=== PATIENT | female | born 1935 | race Caucasian/White ===

== ENCOUNTER 2022-03-12 22:27 | Inpatient (IN) | payer MEDICARE, BC ==
[2022-03-12 23:05] LABS: #Eosinphils 0.1 thou/uL (0.0-0.7); #Lymphocytes 0.7 thou/uL (1.20-3.40); #Monocytes 0.6 thou/uL (0.11-0.59); #Neutrophils 9.9 thou/uL (1.40-6.50); %Eosinophils 0.5 % (0.0-10.0); %Lymphocytes 6.2 % (21.0-51.0); %Neutrophils 88.2 % (42.0-75.0); Hemoglobin 12.6 g/dL (12.0-16.0); Mean Corpuscular HGB CONC 33.3 g/dL (32.0-36.0); Mean Corpuscular Hemoglobin 32.8 pg (27.0-31.0); Mean Corpuscular Volume 98.4 fl (78.0-98.0); Mean Platelet Volume 8.2 fL (7.4-10.4); Platelet Count 122 10x3/uL (130-400); RBC Distribution Width 13.1 % (11.5-14.5); Red Blood Cell (RBC) Count 3.85 mill/uL (4.20-5.40); White Blood Cell (WBC) Count 11.2 10x3/uL (4.8-10.8)
[2022-03-12 23:25] LABS: ALT (SGPT) 10 U/L (8-55); AST (SGOT) 15 U/L (5-34); Albumin 4.4 g/dL (3.4-4.8); Alkaline Phosphatase 73 U/L (40-110); Anion Gap 15 mmol/L (10-20); BUN (Urea Nitrogen) 39 mg/dL (9.8-20.1); Calc. Creatinine Clearance 0 mL/min (70-130); Calcium 9.4 mg/dL (7.8-10.44); Carbon Dioxide 24 mmol/L (23-31); Chloride 103 mmol/L (98-107); Estimated GFR 20; Globulin 2.8 g/dL (2.4-3.5); Glucose 116 mg/dL (83-110); Potassium 4.8 mmol/L (3.5-5.1); Protein, Total 7.2 g/dL (5.8-8.1); Sodium 137 mmol/L (136-145)
[2022-03-12] MEDS ORDERED: Ondansetron PF 4 MG/2 ML Vial ONE (23:39)
[2022-03-12] MEDS ORDERED: Morphine 4 MG/ML VIAL ONE (23:39)
[2022-03-12 23:43] LABS: Lipase 1451 U/L (8-78)
[2022-03-13 01:24] LABS: SARS-CoV-2 NAA Rapid Test Not Detected (NotDetected)
[2022-03-13] MEDS ORDERED: Ondansetron PF 4 MG/2 ML Vial IVP PRN (01:57)
[2022-03-13] MEDS ORDERED: Ondansetron ODT 4 MG TAB PO PRN (01:57)
[2022-03-13] MEDS ORDERED: Acetaminophen 650 MG Suppository PR PRN (01:57)
[2022-03-13 02:06] VITALS: BMI 19.4
[2022-03-13] MEDS: Morphine 4 MG/ML VIAL SLOW IVP PRN ×3 (02:06→20:46)
[2022-03-13] MEDS: Sodium Chloride 0.9% 1,000 ML IV SCH ×2 (02:07→06:19)
[2022-03-13 09:50] LABS: #Eosinphils 0.1 thou/uL (0.0-0.7); #Lymphocytes 0.9 thou/uL (1.20-3.40); #Neutrophils 9.8 thou/uL (1.40-6.50); %Basophils 0.1 % (0.0-1.0); %Eosinophils 0.8 % (0.0-10.0); %Lymphocytes 7.8 % (21.0-51.0); %Monocytes 8.1 % (0.0-10.0); %Neutrophils 83.1 % (42.0-75.0); Anion Gap 16 mmol/L (10-20); BUN (Urea Nitrogen) 41 mg/dL (9.8-20.1); Calc. Creatinine Clearance 14 mL/min (70-130); Calcium 8.6 mg/dL (7.8-10.44); Carbon Dioxide 17 mmol/L (23-31); Chloride 107 mmol/L (98-107); Estimated GFR 18; Glucose 75 mg/dL (83-110); Hemoglobin 11.5 g/dL (12.0-16.0); Mean Corpuscular HGB CONC 32.1 g/dL (32.0-36.0); Mean Corpuscular Hemoglobin 32.7 pg (27.0-31.0); Mean Platelet Volume 8.5 fL (7.4-10.4); Platelet Count 110 10x3/uL (130-400); Potassium 4.7 mmol/L (3.5-5.1); RBC Distribution Width 13.2 % (11.5-14.5); Red Blood Cell (RBC) Count 3.51 mill/uL (4.20-5.40); Sodium 135 mmol/L (136-145); White Blood Cell (WBC) Count 11.8 10x3/uL (4.8-10.8)
[2022-03-13] MEDS: Lactated Ringer's 1,000 ML IV SCH ×2 (14:00→20:46)
[2022-03-14] MEDS: Lactated Ringer's 1,000 ML IV SCH ×2 (02:17→08:38)
[2022-03-14] MEDS ORDERED: Iopamidol 30 ML ONE (09:39)
[2022-03-14] MEDS ORDERED: Bupivacaine HCl 0.5%/Epinephrine 1:200,000/PF 30 ml Vial ONE (09:39)
[2022-03-14] MEDS ORDERED: Sodium Chloride 0.9% 100 ML ONE (09:49)
[2022-03-14] MEDS ORDERED: fentaNYL PF 100 MCG/2 ML SYRINGE ONE (09:49)
[2022-03-14] MEDS ORDERED: CEFAZOLIN 2 GM VIAL ONE (09:49)
[2022-03-14] MEDS ORDERED: Famotidine/PF 20 mg/2ml Vial ONE (09:49)
[2022-03-14] MEDS ORDERED: Levofloxacin 500 mg/D5W 100 ml Premix Bag ONE (10:04)
[2022-03-14] MEDS ORDERED: NEOSTIGMINE 3 MG/3 ML SYR 3 MG/3 ML SYRINGE ONE (10:08)
[2022-03-14] MEDS ORDERED: Ondansetron PF 4 MG/2 ML Vial ONE (10:08)
[2022-03-14] MEDS ORDERED: Glycopyrrolate 0.2 MG/ML 5 ML SYRINGE ONE (10:08)
[2022-03-14] MEDS ORDERED: Lidocaine 1% PF 5 ML VIAL ONE (10:08)
[2022-03-14] MEDS ORDERED: Rocuronium Bromide 10 MG/ML (10ML VIAL) ONE (10:08)
[2022-03-14] MEDS ORDERED: PROPOFOL 200 MG/20 ML VIAL ONE (10:08)
[2022-03-14] MEDS ORDERED: PHENYLEPHRINE-NS 100 MCG/ML 10 ML SYRINGE ONE (10:08)
[2022-03-14] MEDS ORDERED: Promethazine HCl 25 MG/ML VIAL IM PRN (12:00)
[2022-03-14] MEDS ORDERED: Albumin 5% 500 ML ONE (12:09)
[2022-03-14] MEDS ORDERED: Fentanyl 100 MCG/2 ML VIAL ONE (12:22)
[2022-03-14 12:54] LABS: #Eosinphils 0.1 thou/uL (0.0-0.7); #Lymphocytes 0.7 thou/uL (1.20-3.40); #Neutrophils 11.9 thou/uL (1.40-6.50); %Basophils 0.1 % (0.0-1.0); %Eosinophils 0.9 % (0.0-10.0); %Lymphocytes 5.4 % (21.0-51.0); %Monocytes 6.9 % (0.0-10.0); %Neutrophils 86.7 % (42.0-75.0); Hemoglobin 8.8 g/dL (12.0-16.0); Mean Corpuscular Hemoglobin 32.6 pg (27.0-31.0); Mean Platelet Volume 8.6 fL (7.4-10.4); Platelet Count 97 10x3/uL (130-400); RBC Distribution Width 13.5 % (11.5-14.5); White Blood Cell (WBC) Count 13.7 10x3/uL (4.8-10.8)
[2022-03-14] MEDS ORDERED: Acetaminophen 500 MG TAB PO PRN (13:19)
[2022-03-14] MEDS ORDERED: Lactated Ringer's 1,000 ML IV SCH (13:25)
[2022-03-14 13:32] LABS: ALT (SGPT) 16 U/L (8-55); AST (SGOT) 40 U/L (5-34); Albumin 2.8 g/dL (3.4-4.8); Alkaline Phosphatase 44 U/L (40-110); Anion Gap 12 mmol/L (10-20); BUN (Urea Nitrogen) 46 mg/dL (9.8-20.1); Bilirubin, Total 1.1 mg/dL (0.2-1.2); Calc. Creatinine Clearance 10 mL/min (70-130); Calcium 7.8 mg/dL (7.8-10.44); Carbon Dioxide 19 mmol/L (23-31); Chloride 109 mmol/L (98-107); Estimated GFR 12; Globulin 1.6 g/dL (2.4-3.5); Glucose 85 mg/dL (83-110); Lipase 56 U/L (8-78); Potassium 5.3 mmol/L (3.5-5.1); Protein, Total 4.4 g/dL (5.8-8.1); Sodium 135 mmol/L (136-145)
[2022-03-14] MEDS ORDERED: Acetaminophen 500 MG TAB PO SCH (13:45)
[2022-03-14] MEDS ORDERED: Sodium Chloride 0.9% 1,000 ML IV SCH (14:45)
[2022-03-14 18:11] LABS: #Eosinphils 0.1 thou/uL (0.0-0.7); #Lymphocytes 0.6 thou/uL (1.20-3.40); #Monocytes 0.7 thou/uL (0.11-0.59); #Neutrophils 11.4 thou/uL (1.40-6.50); %Basophils 0.2 % (0.0-1.0); %Eosinophils 0.7 % (0.0-10.0); %Lymphocytes 4.5 % (21.0-51.0); %Monocytes 5.5 % (0.0-10.0); Hemoglobin 10.1 g/dL (12.0-16.0); Mean Corpuscular HGB CONC 31.9 g/dL (32.0-36.0); Mean Corpuscular Hemoglobin 32.7 pg (27.0-31.0); Mean Platelet Volume 8.7 fL (7.4-10.4); Platelet Count 104 10x3/uL (130-400); RBC Distribution Width 13.7 % (11.5-14.5); Red Blood Cell (RBC) Count 3.08 mill/uL (4.20-5.40); White Blood Cell (WBC) Count 12.9 10x3/uL (4.8-10.8)
[2022-03-14] MEDS: Sodium Chloride 0.9% 1,000 ML IV SCH ×2 (18:19→21:07)
[2022-03-14] MEDS: Morphine 4 MG/ML VIAL SLOW IVP PRN (21:07)
[2022-03-15] MEDS: Sodium Chloride 0.9% 1,000 ML IV SCH (02:35)
[2022-03-15 07:09] LABS: ALT (SGPT) 35 U/L (8-55); AST (SGOT) 64 U/L (5-34); Albumin 2.6 g/dL (3.4-4.8); Alkaline Phosphatase 54 U/L (40-110); Anion Gap 14 mmol/L (10-20); BUN (Urea Nitrogen) 52 mg/dL (9.8-20.1); Bilirubin, Total 1.4 mg/dL (0.2-1.2); Calc. Creatinine Clearance 9 mL/min (70-130); Calcium 7.7 mg/dL (7.8-10.44); Carbon Dioxide 18 mmol/L (23-31); Chloride 111 mmol/L (98-107); Estimated GFR 11; Globulin 2.2 g/dL (2.4-3.5); Glucose 78 mg/dL (83-110); Potassium 5.8 mmol/L (3.5-5.1); Protein, Total 4.8 g/dL (5.8-8.1); Sodium 137 mmol/L (136-145)
[2022-03-15 07:42] LABS: Band 3 % (5-11); Burr Cells SLIGHT = 2-5 cells (100X) (0-1/hpf); Lymphocytes 2 % (21-51); MDiff Complete? YES; Mean Corpuscular HGB CONC 33.6 g/dL (32.0-36.0); Mean Corpuscular Hemoglobin 33.7 pg (27.0-31.0); Mean Platelet Volume 8.9 fL (7.4-10.4); Monocytes 4 % (0-10); Neutrophil 90 % (42-75); Ovalocytes SLIGHT = 2-5 cells (100X) (0-1/hpf); Platelet Count 98 10x3/uL (130-400); Platelet Morphology Comment Appears Decreased; Polychromasia SLIGHT = 2-3 cells (100X) (0-2/hpf); RBC Distribution Width 13.6 % (11.5-14.5); Red Blood Cell (RBC) Count 2.97 mill/uL (4.20-5.40)
[2022-03-15] MEDS ORDERED: LOKELMA 10 GM PACKET PO SCH (08:45)
[2022-03-15] MEDS ORDERED: Sodium Bicarbonate 150 MEQ in Dextrose 5% in Water 1,000 ML IV SCH (09:00)
[2022-03-15] MEDS: traMADol HCl 50 MG TAB PO PRN (09:21)
[2022-03-15] MEDS: HYDROcodone/Acetaminophen 5/325 mg Tablet PO PRN (10:40)
[2022-03-15 17:58] LABS: Anion Gap 15 mmol/L (10-20); BUN (Urea Nitrogen) 55 mg/dL (9.8-20.1); Calc. Creatinine Clearance 9 mL/min (70-130); Calcium 7.8 mg/dL (7.8-10.44); Carbon Dioxide 18 mmol/L (23-31); Chloride 108 mmol/L (98-107); Estimated GFR 11; Glucose 113 mg/dL (83-110); Potassium 5.1 mmol/L (3.5-5.1); Sodium 136 mmol/L (136-145)
[2022-03-15] MEDS: predniSONE 5 MG TAB PO SCH (20:51)
[2022-03-15] MEDS: Acetaminophen 325 MG TAB PO PRN (20:52)
[2022-03-15] MEDS: Levothyroxine Sodium 112 MCG TAB PO SCH (20:52)
[2022-03-16] MEDS: Levothyroxine Sodium 112 MCG TAB PO SCH (05:39)
[2022-03-16 06:42] LABS: #Eosinphils 0.1 thou/uL (0.0-0.7); #Lymphocytes 0.5 thou/uL (1.20-3.40); #Monocytes 0.5 thou/uL (0.11-0.59); #Neutrophils 8.7 thou/uL (1.40-6.50); %Basophils 0.2 % (0.0-1.0); %Eosinophils 0.5 % (0.0-10.0); %Lymphocytes 5.1 % (21.0-51.0); %Monocytes 5.3 % (0.0-10.0); %Neutrophils 88.9 % (42.0-75.0); Hemoglobin 9.7 g/dL (12.0-16.0); Mean Corpuscular HGB CONC 33.1 g/dL (32.0-36.0); Mean Corpuscular Hemoglobin 33.3 pg (27.0-31.0); Mean Platelet Volume 8.2 fL (7.4-10.4); Platelet Count 117 10x3/uL (130-400); RBC Distribution Width 13.5 % (11.5-14.5); Red Blood Cell (RBC) Count 2.91 mill/uL (4.20-5.40); White Blood Cell (WBC) Count 9.7 10x3/uL (4.8-10.8)
[2022-03-16 07:04] LABS: ALT (SGPT) 34 U/L (8-55); AST (SGOT) 37 U/L (5-34); Albumin 2.5 g/dL (3.4-4.8); Alkaline Phosphatase 64 U/L (40-110); Anion Gap 14 mmol/L (10-20); BUN (Urea Nitrogen) 54 mg/dL (9.8-20.1); Bilirubin, Total 1.1 mg/dL (0.2-1.2); Calc. Creatinine Clearance 9 mL/min (70-130); Calcium 7.9 mg/dL (7.8-10.44); Carbon Dioxide 19 mmol/L (23-31); Chloride 105 mmol/L (98-107); Estimated GFR 11; Globulin 2.1 g/dL (2.4-3.5); Glucose 101 mg/dL (83-110); Protein, Total 4.6 g/dL (5.8-8.1); Sodium 133 mmol/L (136-145)
[2022-03-16] MEDS: Escitalopram Oxalate 20 mg Tablet PO SCH (08:27)
[2022-03-16] MEDS: predniSONE 5 MG TAB PO SCH (08:27)
[2022-03-16] MEDS: HYDROcodone/Acetaminophen 5/325 mg Tablet PO PRN ×3 (08:40→23:52)
[2022-03-16] MEDS ORDERED: Levothyroxine Sodium 112 MCG TAB PO SCH (09:00)
[2022-03-16] MEDS: Apixaban 2.5 MG TAB PO SCH (21:02)
[2022-03-17] MEDS: traMADol HCl 50 MG TAB PO PRN ×4 (01:53→23:32)
[2022-03-17] MEDS: Levothyroxine Sodium 112 MCG TAB PO SCH (05:08)
[2022-03-17 07:00] LABS: Platelet Count 140 10x3/uL (130-400)
[2022-03-17 07:21] LABS: Anion Gap 15 mmol/L (10-20); BUN (Urea Nitrogen) 57 mg/dL (9.8-20.1); Calc. Creatinine Clearance 9 mL/min (70-130); Calcium 8.5 mg/dL (7.8-10.44); Carbon Dioxide 20 mmol/L (23-31); Chloride 106 mmol/L (98-107); Estimated GFR 11; Glucose 88 mg/dL (83-110); Potassium 5.2 mmol/L (3.5-5.1); Sodium 136 mmol/L (136-145)
[2022-03-17] MEDS: Apixaban 2.5 MG TAB PO SCH ×2 (08:39→20:11)
[2022-03-17] MEDS: predniSONE 5 MG TAB PO SCH (08:40)
[2022-03-17] MEDS: Escitalopram Oxalate 20 mg Tablet PO SCH (08:41)
[2022-03-17] MEDS: Torsemide 20 MG TAB PO SCH (10:23)
[2022-03-17] MEDS: HYDROcodone/Acetaminophen 5/325 mg Tablet PO PRN (12:59)
[2022-03-18] MEDS ORDERED: cloNIDine 0.1 MG TAB PO SCH (00:30)
[2022-03-18] MEDS: Levothyroxine Sodium 112 MCG TAB PO SCH (05:09)
[2022-03-18] MEDS: HYDROcodone/Acetaminophen 5/325 mg Tablet PO PRN ×2 (05:15→13:26)
[2022-03-18] MEDS: Apixaban 2.5 MG TAB PO SCH ×2 (09:39→21:16)
[2022-03-18] MEDS: Torsemide 20 MG TAB PO SCH (09:39)
[2022-03-18] MEDS: Escitalopram Oxalate 20 mg Tablet PO SCH (09:39)
[2022-03-18] MEDS: predniSONE 5 MG TAB PO SCH (09:39)
[2022-03-18] MEDS: traMADol HCl 50 MG TAB PO PRN (09:45)
[2022-03-18] MEDS: Acetaminophen 325 MG TAB PO PRN (21:16)
[2022-03-19] MEDS: HYDROcodone/Acetaminophen 5/325 mg Tablet PO PRN ×4 (01:30→19:59)
[2022-03-19] MEDS: traMADol HCl 50 MG TAB PO PRN (04:00)
[2022-03-19] MEDS: Levothyroxine Sodium 112 MCG TAB PO SCH (05:00)
[2022-03-19] MEDS: Apixaban 2.5 MG TAB PO SCH ×2 (09:37→19:59)
[2022-03-19] MEDS: Torsemide 20 MG TAB PO SCH (09:37)
[2022-03-19] MEDS: predniSONE 5 MG TAB PO SCH (09:37)
[2022-03-19] MEDS: Escitalopram Oxalate 20 mg Tablet PO SCH (09:37)
[2022-03-20] MEDS: Levothyroxine Sodium 112 MCG TAB PO SCH (05:16)
[2022-03-20] MEDS: Escitalopram Oxalate 20 mg Tablet PO SCH (14:18)
[2022-03-20] MEDS: Torsemide 20 MG TAB PO SCH (14:18)
[2022-03-20] MEDS: Apixaban 2.5 MG TAB PO SCH ×2 (14:18→20:46)
[2022-03-20] MEDS: predniSONE 5 MG TAB PO SCH (14:18)
[2022-03-20] MEDS: traMADol HCl 50 MG TAB PO PRN ×2 (14:22→20:46)
[2022-03-20] MEDS: Acetaminophen 325 MG TAB PO PRN (20:47)
[2022-03-21] MEDS: HYDROcodone/Acetaminophen 5/325 mg Tablet PO PRN ×2 (01:02→08:09)
[2022-03-21] MEDS: Levothyroxine Sodium 112 MCG TAB PO SCH (05:14)
[2022-03-21] MEDS: predniSONE 5 MG TAB PO SCH (08:09)
[2022-03-21] MEDS: Apixaban 2.5 MG TAB PO SCH ×2 (08:09→22:14)
[2022-03-21] MEDS: Escitalopram Oxalate 20 mg Tablet PO SCH (08:09)
[2022-03-21] MEDS: Torsemide 20 MG TAB PO SCH (08:09)
[2022-03-21 16:54] LABS: Albumin 2.7 g/dL (3.4-4.8); Anion Gap 17 mmol/L (10-20); BUN (Urea Nitrogen) 72 mg/dL (9.8-20.1); BUN/Creatinine Ratio 20.57; Calc. Creatinine Clearance 10 mL/min (70-130); Calcium 8.4 mg/dL (7.8-10.44); Carbon Dioxide 24 mmol/L (23-31); Chloride 95 mmol/L (98-107); Estimated GFR 12; Glucose 105 mg/dL (83-110); Phosphorus 5.3 mg/dL (2.3-4.7); Sodium 132 mmol/L (136-145)
[2022-03-21] MEDS ORDERED: Naloxone HCl 0.4 mg/ml Vial IV SCH (18:30)
[2022-03-21] MEDS ORDERED: Naloxone HCl 0.4 mg/ml Vial ONE (18:32)
[2022-03-21 20:24] LABS: Acetaminophen Less than 10.0 mcg/mL (10.0-30.0)
[2022-03-21 21:20] LABS: Bilirubin Negative (Negative); Blood, Urine Trace (Negative); CAUTI Indications for Culture Alt mental st,lethar; Clarity Clear (Clear); Glucose, Urine (Dipstick) Normal (Negative); Ketone, Urine Negative (Negative); Leukocyte 250 Leu/uL (Negative); Nitrite Negative (Negative); Protein, Urine (Dipstick) Negative (Neg-Trace); RBC/HPF 0-3 HPF (0-3); Specific Gravity, Urine 1.009 (1.002-1.036); Squamous Epithelial 0-3 HPF (0-3); Urobilinogen Normal mg/dL (Less than 2); WBC/HPF 21-50 HPF (0-3)
[2022-03-21 21:22] LABS: Bacteria/HPF 1+ HPF (None Seen); Urine Culture Reflex Yes Yes
[2022-03-22] MEDS: Acetaminophen 325 MG TAB PO PRN ×3 (03:29→20:48)
[2022-03-22] MEDS: Levothyroxine Sodium 112 MCG TAB PO SCH (06:21)
[2022-03-22] MEDS: Carvedilol 6.25 MG TAB PO SCH ×2 (09:20→17:14)
[2022-03-22] MEDS: predniSONE 5 MG TAB PO SCH (09:21)
[2022-03-22] MEDS: Apixaban 2.5 MG TAB PO SCH ×2 (09:22→20:48)
[2022-03-22] MEDS: Escitalopram Oxalate 20 mg Tablet PO SCH (09:22)
[2022-03-22] MEDS: Torsemide 20 MG TAB PO SCH (09:22)
[2022-03-23] MEDS: Levothyroxine Sodium 112 MCG TAB PO SCH (05:09)
[2022-03-23] MEDS: Carvedilol 6.25 MG TAB PO SCH ×2 (09:19→17:45)
[2022-03-23] MEDS: Torsemide 20 MG TAB PO SCH (09:19)
[2022-03-23] MEDS: Escitalopram Oxalate 20 mg Tablet PO SCH (09:20)
[2022-03-23] MEDS: predniSONE 5 MG TAB PO SCH (09:20)
[2022-03-23] MEDS: Apixaban 2.5 MG TAB PO SCH ×2 (09:20→20:05)
[2022-03-23] MEDS: HYDROcodone/Acetaminophen 5/325 mg Tablet PO PRN ×2 (10:53→19:45)
[2022-03-24] MEDS: Levothyroxine Sodium 112 MCG TAB PO SCH (05:20)
[2022-03-24] MEDS: Apixaban 2.5 MG TAB PO SCH ×2 (08:50→21:16)
[2022-03-24] MEDS: Escitalopram Oxalate 20 mg Tablet PO SCH (08:50)
[2022-03-24] MEDS: Carvedilol 6.25 MG TAB PO SCH ×3 (08:50→15:43)
[2022-03-24] MEDS: predniSONE 5 MG TAB PO SCH (08:50)
[2022-03-24] MEDS: HYDROcodone/Acetaminophen 5/325 mg Tablet PO PRN (15:43)
[2022-03-24] MEDS: Acetaminophen 325 MG TAB PO PRN (21:16)
[2022-03-25] MEDS: Levothyroxine Sodium 112 MCG TAB PO SCH (05:43)
[2022-03-25 07:59] VITALS: TEMP 97.7
[2022-03-25] MEDS: Carvedilol 6.25 MG TAB PO SCH ×2 (08:52→17:00)
[2022-03-25] MEDS: predniSONE 5 MG TAB PO SCH (08:52)
[2022-03-25] MEDS: Escitalopram Oxalate 20 mg Tablet PO SCH (08:52)
[2022-03-25] MEDS: Apixaban 2.5 MG TAB PO SCH (08:53)
[2022-03-25 09:34] LABS: Anion Gap 16 mmol/L (10-20); BUN (Urea Nitrogen) 59 mg/dL (9.8-20.1); BUN/Creatinine Ratio 21.15; Calc. Creatinine Clearance 13 mL/min (70-130); Calcium 8.8 mg/dL (7.8-10.44); Carbon Dioxide 25 mmol/L (23-31); Chloride 95 mmol/L (98-107); Estimated GFR 16; Glucose 105 mg/dL (83-110); Potassium 3.7 mmol/L (3.5-5.1); Sodium 132 mmol/L (136-145)
[2022-03-25 17:00] VITALS: BP 122/71
== END 2022-03-25 17:00 | DRG 405 ==
LOC: ERS 22:27 → T4-B 03-13 00:38
PROVIDERS: ADMIT Student in an Organized Health Care Education/Training Program; ATTEND Hospitalist
PROC: 0FQ04ZZ Repair Liver, Percutaneous Endoscopic Approach (ICD-10-PCS; principal; 2022-03-14)
PROC: 0FT44ZZ Resection of Gallbladder, Percutaneous Endoscopic Approach (ICD-10-PCS; 2022-03-14)
PROC: 30233N1 Transfusion of Nonautologous Red Blood Cells into Peripheral Vein, Percutaneous Approach (ICD-10-PCS; 2022-03-14)
PROC: BF10YZZ Fluoroscopy of Bile Ducts using Other Contrast (ICD-10-PCS; 2022-03-14)
DX: K80.00 Calculus of gallbladder with acute cholecystitis without obstruction (principal); K85.11 Biliary acute pancreatitis with uninfected necrosis; I50.32 Chronic diastolic (congestive) heart failure; I48.11 Longstanding persistent atrial fibrillation; I42.9 Cardiomyopathy, unspecified; K86.2 Cyst of pancreas; D62 Acute posthemorrhagic anemia; N17.9 Acute kidney failure, unspecified; N18.5 Chronic kidney disease, stage 5; I13.2 Hypertensive heart and chronic kidney disease with heart failure and with stage 5 chronic kidney disease, or end stage renal disease; E87.1 Hypo-osmolality and hyponatremia; E87.20 Acidosis, unspecified; E36.1 Accidental puncture and laceration of an endocrine system organ or structure during a procedure; E03.9 Hypothyroidism, unspecified; I34.0 Nonrheumatic mitral (valve) insufficiency; I25.10 Atherosclerotic heart disease of native coronary artery without angina pectoris; I44.7 Left bundle-branch block, unspecified; K21.9 Gastro-esophageal reflux disease without esophagitis; E78.00 Pure hypercholesterolemia, unspecified; Z88.1 Allergy status to other antibiotic agents; Z88.8 Allergy status to other drugs, medicaments and biological substances; Z79.01 Long term (current) use of anticoagulants; Z79.890 Hormone replacement therapy; Z90.710 Acquired absence of both cervix and uterus; Z90.49 Acquired absence of other specified parts of digestive tract; Z95.810 Presence of automatic (implantable) cardiac defibrillator; F41.9 Anxiety disorder, unspecified; F32.A Depression, unspecified; N28.1 Cyst of kidney, acquired; D72.829 Elevated white blood cell count, unspecified; E87.5 Hyperkalemia; Y83.8 Other surgical procedures as the cause of abnormal reaction of the patient, or of later complication, without mention of misadventure at the time of the procedure; D63.1 Anemia in chronic kidney disease; E88.09 Other disorders of plasma-protein metabolism, not elsewhere classified
CPT/HCPCS: 36415; 36416; 36430; 47532; 70450; 71045; 74176; 76705; 80048; 80053; 80069; 80143; 81001; 83605; 83690; 84484; 85014; 85018; 85025; 85049; 86850; 86900; 86901; 87086; 87811; 88304; 93005; 93306; 93970; 96374; 96375; 80307; C1713; C1889; J1611; J1956; J2270; J2310; J2405; J2704; J3010; J3490; J7050; J7070; J7120; J7512; P9016; P9045; Q0162; Q9967; S0028; U0002

== ENCOUNTER 2022-06-10 17:13 | Inpatient (IN) | payer BC, MEDICARE ==
[2022-06-10 18:37] LABS: #Lymphocytes 0.5 thou/uL (1.20-3.40); #Monocytes 0.3 thou/uL (0.11-0.59); #Neutrophils 3.3 thou/uL (1.40-6.50); %Basophils 0.3 % (0.0-1.0); %Eosinophils 0.5 % (0.0-10.0); %Lymphocytes 12.6 % (21.0-51.0); %Monocytes 6.7 % (0.0-10.0); %Neutrophils 79.9 % (42.0-75.0); Hemoglobin 10.6 g/dL (12.0-16.0); Mean Corpuscular Hemoglobin 32.4 pg (27.0-31.0); Mean Corpuscular Volume 98.2 fl (78.0-98.0); Mean Platelet Volume 8.4 fL (7.4-10.4); Platelet Count 133 10x3/uL (130-400); RBC Distribution Width 13.9 % (11.5-14.5); Red Blood Cell (RBC) Count 3.26 mill/uL (4.20-5.40); White Blood Cell (WBC) Count 4.1 10x3/uL (4.8-10.8)
[2022-06-10 18:49] LABS: INR-International Normal Ratio 1.5; Prothrombin Time 18.2 sec (12.0-14.7)
[2022-06-10 18:50] LABS: PTT 41.6 sec (22.9-36.1)
[2022-06-10 19:19] LABS: CKMB 3.2 ng/mL (0-6.6)
[2022-06-10 19:25] LABS: ALT (SGPT) 9 U/L (8-55); AST (SGOT) 16 U/L (5-34); Albumin 3.9 g/dL (3.4-4.8); Alkaline Phosphatase 81 U/L (40-110); BUN (Urea Nitrogen) 39 mg/dL (9.8-20.1); Calc. Creatinine Clearance 0 mL/min (70-130); Calcium 9.5 mg/dL (7.8-10.44); Carbon Dioxide 18 mmol/L (23-31); Chloride 108 mmol/L (98-107); Estimated GFR 26; Globulin 2.3 g/dL (2.4-3.5); Glucose 103 mg/dL (83-110); Protein, Total 6.2 g/dL (5.8-8.1); Sodium 136 mmol/L (136-145)
[2022-06-10 19:31] LABS: Anion Gap 15 mmol/L (10-20)
[2022-06-10] MEDS ORDERED: Furosemide 100 MG/10 ML VIAL ONE (19:55)
[2022-06-10] MEDS ORDERED: Calcium Carbonate 500 MG ChewTAB PO PRN (21:11)
[2022-06-10] MEDS ORDERED: diphenhydrAMINE 25 MG CAP PO PRN (21:11)
[2022-06-10] MEDS ORDERED: Ondansetron ODT 4 MG TAB PO PRN (21:11)
[2022-06-10] MEDS ORDERED: Loperamide HCl 2 MG CAP PO PRN ×2 (21:11)
[2022-06-10] MEDS ORDERED: Acetaminophen 650 MG Suppository PR PRN (21:11)
[2022-06-10] MEDS ORDERED: Sodium Chloride 0.65% Nasal 44 ML BOT EA NARE PRN (21:11)
[2022-06-10] MEDS ORDERED: Moisturizing Cream (Eucerin) 113 GM JAR TOP PRN (21:11)
[2022-06-10] MEDS ORDERED: Artificial Tear Sol 15 ML BOT EA EYE PRN (21:11)
[2022-06-10 21:22] LABS: Bacteria/HPF 4+ HPF (None Seen); Bilirubin Negative (Negative); Blood, Urine Negative (Negative); Clarity Clear (Clear); Glucose, Urine (Dipstick) Normal (Negative); Ketone, Urine Negative (Negative); Leukocyte 500 Leu/uL (Negative); Nitrite Negative (Negative); Protein, Urine (Dipstick) Negative (Neg-Trace); RBC/HPF 0-3 HPF (0-3); Specific Gravity, Urine 1.011 (1.002-1.036); Squamous Epithelial 0-3 HPF (0-3); Urobilinogen Normal mg/dL (Less than 2); WBC/HPF 21-50 HPF (0-3); pH, Urine 5.5 (5.0-9.0)
[2022-06-10 22:45] LABS: Troponin I Less than 0.010 ng/mL (< 0.028)
[2022-06-11 00:04] VITALS: BMI 20.5
[2022-06-11] MEDS ORDERED: Melatonin 3 MG TAB PO PRN (00:11)
[2022-06-11] MEDS: Acetaminophen 325 MG TAB PO PRN ×3 (00:20→21:43)
[2022-06-11 05:07] LABS: #Eosinphils 0.1 thou/uL (0.0-0.7); #Lymphocytes 0.9 thou/uL (1.20-3.40); #Monocytes 0.5 thou/uL (0.11-0.59); #Neutrophils 2.8 thou/uL (1.40-6.50); %Basophils 0.5 % (0.0-1.0); %Eosinophils 2.5 % (0.0-10.0); %Lymphocytes 21.3 % (21.0-51.0); %Monocytes 10.7 % (0.0-10.0); %Neutrophils 65.1 % (42.0-75.0); Hemoglobin 9.5 g/dL (12.0-16.0); Mean Corpuscular Hemoglobin 32.5 pg (27.0-31.0); Mean Corpuscular Volume 98.3 fl (78.0-98.0); Mean Platelet Volume 8.4 fL (7.4-10.4); Platelet Count 134 10x3/uL (130-400); RBC Distribution Width 13.9 % (11.5-14.5); Red Blood Cell (RBC) Count 2.91 mill/uL (4.20-5.40); White Blood Cell (WBC) Count 4.3 10x3/uL (4.8-10.8)
[2022-06-11 05:27] LABS: Anion Gap 12 mmol/L (10-20); BUN (Urea Nitrogen) 41 mg/dL (9.8-20.1); Calc. Creatinine Clearance 21 mL/min (70-130); Carbon Dioxide 20 mmol/L (23-31); Chloride 108 mmol/L (98-107); Estimated GFR 26; Glucose 89 mg/dL (83-110); Magnesium 2.1 mg/dL (1.6-2.6); Potassium 4.3 mmol/L (3.5-5.1); Sodium 136 mmol/L (136-145)
[2022-06-11 05:53] LABS: Thyroid Stimulating Hormone 0.2192 uIU/mL (0.35-4.94)
[2022-06-11] MEDS: Furosemide 40 MG/4 ML VIAL SLOW IVP SCH ×2 (06:39→14:04)
[2022-06-11] MEDS: predniSONE 5 MG TAB PO SCH (09:54)
[2022-06-11] MEDS: Sodium Bicarbonate Tab 325 MG TAB PO SCH ×3 (09:54→21:43)
[2022-06-11] MEDS: Heparin 5,000 UNITS/ML VIAL SC SCH ×3 (09:55→21:44)
[2022-06-11] MEDS ORDERED: Docusate 100 MG CAP PO PRN (13:17)
[2022-06-11] MEDS: cefTRIAXone\\ROCEPHIN 1 GM in Sodium Chloride 0.9% 100 ML IVPB SCH (14:04)
[2022-06-11] MEDS ORDERED: Loratadine 10 MG TAB PO PRN (18:53)
[2022-06-11] MEDS: GUAIFENESIN SF SOLN 200 MG/10 ML UDCUP PO PRN (21:43)
[2022-06-11] MEDS: Lorazepam 1 MG TAB PO PRN (21:59)
[2022-06-12 04:18] LABS: #Eosinphils 0.1 thou/uL (0.0-0.7); #Lymphocytes 0.8 thou/uL (1.20-3.40); #Monocytes 0.5 thou/uL (0.11-0.59); #Neutrophils 4.2 thou/uL (1.40-6.50); %Basophils 0.7 % (0.0-1.0); %Eosinophils 1.3 % (0.0-10.0); %Lymphocytes 14.3 % (21.0-51.0); %Monocytes 9.7 % (0.0-10.0); %Neutrophils 74.1 % (42.0-75.0); Hemoglobin 9.9 g/dL (12.0-16.0); Mean Corpuscular HGB CONC 33.2 g/dL (32.0-36.0); Mean Corpuscular Hemoglobin 32.5 pg (27.0-31.0); Mean Corpuscular Volume 97.9 fl (78.0-98.0); Mean Platelet Volume 8.4 fL (7.4-10.4); Platelet Count 126 10x3/uL (130-400); RBC Distribution Width 13.9 % (11.5-14.5); Red Blood Cell (RBC) Count 3.03 mill/uL (4.20-5.40); White Blood Cell (WBC) Count 5.6 10x3/uL (4.8-10.8)
[2022-06-12 04:37] LABS: Anion Gap 15 mmol/L (10-20); BUN (Urea Nitrogen) 41 mg/dL (9.8-20.1); Calc. Creatinine Clearance 19 mL/min (70-130); Carbon Dioxide 21 mmol/L (23-31); Chloride 103 mmol/L (98-107); Potassium 3.8 mmol/L (3.5-5.1); Sodium 135 mmol/L (136-145)
[2022-06-12 04:38] LABS: Calcium 8.7 mg/dL (7.8-10.44); Estimated GFR 25; Glucose 80 mg/dL (83-110)
[2022-06-12] MEDS: Furosemide 40 MG/4 ML VIAL SLOW IVP SCH ×2 (05:53→15:04)
[2022-06-12] MEDS: GUAIFENESIN SF SOLN 200 MG/10 ML UDCUP PO PRN (05:53)
[2022-06-12] MEDS ORDERED: Levothyroxine Sodium 112 MCG TAB PO SCH (09:00)
[2022-06-12] MEDS: predniSONE 5 MG TAB PO SCH (09:29)
[2022-06-12] MEDS: Sodium Bicarbonate Tab 325 MG TAB PO SCH ×3 (09:29→21:24)
[2022-06-12] MEDS: Heparin 5,000 UNITS/ML VIAL SC SCH ×3 (09:29→21:25)
[2022-06-12] MEDS: Cholecalciferol 1,000 UNITS (25 MCG) TAB PO SCH (09:29)
[2022-06-12] MEDS: Escitalopram Oxalate 20 mg Tablet PO SCH (09:30)
[2022-06-12] MEDS ORDERED: guaiFENesin ER 600 MG TAB PO SCH (10:45)
[2022-06-12] MEDS: cefTRIAXone\\ROCEPHIN 1 GM in Sodium Chloride 0.9% 100 ML IVPB SCH (15:04)
[2022-06-12] MEDS ORDERED: Loratadine 10 MG TAB PO PRN (15:35)
[2022-06-12] MEDS: Acetaminophen 325 MG TAB PO PRN (18:45)
[2022-06-12] MEDS: guaiFENesin ER 600 MG TAB PO SCH (21:24)
[2022-06-12] MEDS: Lorazepam 1 MG TAB PO PRN (21:24)
[2022-06-13 04:02] LABS: #Basophils 0.1 thou/uL (0.0-0.2); #Eosinphils 0.1 thou/uL (0.0-0.7); #Lymphocytes 0.9 thou/uL (1.20-3.40); #Monocytes 0.6 thou/uL (0.11-0.59); #Neutrophils 3.4 thou/uL (1.40-6.50); %Basophils 1.2 % (0.0-1.0); %Eosinophils 1.6 % (0.0-10.0); %Monocytes 11.2 % (0.0-10.0); Hemoglobin 9.8 g/dL (12.0-16.0); Mean Corpuscular HGB CONC 31.7 g/dL (32.0-36.0); Mean Corpuscular Hemoglobin 30.9 pg (27.0-31.0); Mean Corpuscular Volume 97.3 fl (78.0-98.0); Mean Platelet Volume 8.4 fL (7.4-10.4); Platelet Count 142 10x3/uL (130-400); RBC Distribution Width 13.8 % (11.5-14.5); Red Blood Cell (RBC) Count 3.17 mill/uL (4.20-5.40)
[2022-06-13 04:21] LABS: Anion Gap 16 mmol/L (10-20); BUN (Urea Nitrogen) 38 mg/dL (9.8-20.1); Calc. Creatinine Clearance 18 mL/min (70-130); Calcium 8.7 mg/dL (7.8-10.44); Carbon Dioxide 25 mmol/L (23-31); Chloride 97 mmol/L (98-107); Estimated GFR 24; Glucose 90 mg/dL (83-110); Potassium 3.5 mmol/L (3.5-5.1); Sodium 134 mmol/L (136-145)
[2022-06-13] MEDS: Furosemide 40 MG/4 ML VIAL SLOW IVP SCH (05:15)
[2022-06-13] MEDS ORDERED: Apixaban 2.5 MG TAB PO SCH (09:00)
[2022-06-13] MEDS ORDERED: Non-Formulary Item 1 EACH (Mirabegron [Myrbetriq] 50 MG Tab.Er.24h) PO SCH (09:00)
[2022-06-13] MEDS ORDERED: Estradiol 1 MG TAB PO SCH (09:00)
[2022-06-13] MEDS ORDERED: Potassium Chloride 20 MEQ TAB PO SCH (09:30)
[2022-06-13] MEDS: Cholecalciferol 1,000 UNITS (25 MCG) TAB PO SCH (09:36)
[2022-06-13] MEDS: Escitalopram Oxalate 20 mg Tablet PO SCH (09:37)
[2022-06-13] MEDS: predniSONE 5 MG TAB PO SCH (09:38)
[2022-06-13] MEDS: guaiFENesin ER 600 MG TAB PO SCH (09:38)
[2022-06-13] MEDS: cefTRIAXone\\ROCEPHIN 1 GM in Sodium Chloride 0.9% 100 ML IVPB SCH (13:34)
[2022-06-13 16:15] VITALS: TEMP 97.7
[2022-06-13 16:17] VITALS: BP 131/61
[2022-06-14] MEDS ORDERED: Torsemide 20 MG TAB PO SCH (09:00)
== END 2022-06-13 19:52 | disposition home or self-care (01) | DRG 291 ==
LOC: ERS 17:13 → 2NO 20:24
PROVIDERS: ADMIT Family Medicine; ATTEND Internal Medicine
DX: I13.0 Hypertensive heart and chronic kidney disease with heart failure and stage 1 through stage 4 chronic kidney disease, or unspecified chronic kidney disease (principal); I50.33 Acute on chronic diastolic (congestive) heart failure; E87.20 Acidosis, unspecified; N18.4 Chronic kidney disease, stage 4 (severe); I48.21 Permanent atrial fibrillation; N17.9 Acute kidney failure, unspecified; E27.40 Unspecified adrenocortical insufficiency; N30.00 Acute cystitis without hematuria; E03.9 Hypothyroidism, unspecified; Z96.642 Presence of left artificial hip joint; I07.1 Rheumatic tricuspid insufficiency; I27.20 Pulmonary hypertension, unspecified; D63.1 Anemia in chronic kidney disease; Z66 Do not resuscitate; E87.6 Hypokalemia; Z86.73 Personal history of transient ischemic attack (TIA), and cerebral infarction without residual deficits; Z90.49 Acquired absence of other specified parts of digestive tract; Z98.890 Other specified postprocedural states; Z95.0 Presence of cardiac pacemaker; Z88.1 Allergy status to other antibiotic agents; Z88.8 Allergy status to other drugs, medicaments and biological substances
CPT/HCPCS: 36415; 36416; 70450; 71045; 72125; 80048; 80053; 81003; 81015; 82553; 82607; 82728; 83735; 83880; 84443; 84484; 85025; 85610; 85730; 87077; 87086; 87186; 93005; 93798; 94640; 96374; 97139; J0696; J1644; J1940; J3490; J7512; J7611

== ENCOUNTER 2022-08-10 22:17 | Inpatient (IN) | payer MEDICARE ==
[2022-08-10] MEDS ORDERED: Morphine 2 MG/ML VIAL ONE (23:02)
[2022-08-10] MEDS ORDERED: Ondansetron PF 4 MG/2 ML Vial ONE (23:02)
[2022-08-10 23:26] LABS: #Monocytes 0.4 thou/uL (0.11-0.59); #Neutrophils 5.3 thou/uL (1.40-6.50); %Basophils 0.3 % (0.0-1.0); %Eosinophils 0.6 % (0.0-10.0); %Lymphocytes 11.9 % (21.0-51.0); %Monocytes 6.6 % (0.0-10.0); %Neutrophils 80.3 % (42.0-75.0); Hemoglobin 10.3 g/dL (12.0-16.0); Mean Corpuscular HGB CONC 31.9 g/dL (32.0-36.0); Mean Corpuscular Hemoglobin 30.2 pg (27.0-31.0); Mean Corpuscular Volume 94.7 fl (78.0-98.0); Mean Platelet Volume 10.9 fL (7.4-10.4); Platelet Count 117 10x3/uL (130-400); RBC Distribution Width 14.6 % (11.5-14.5); Red Blood Cell (RBC) Count 3.41 mill/uL (4.20-5.40); White Blood Cell (WBC) Count 6.6 10x3/uL (4.8-10.8)
[2022-08-10 23:53] LABS: ALT (SGPT) 10 U/L (8-55); AST (SGOT) 14 U/L (5-34); Albumin 3.9 g/dL (3.4-4.8); Alkaline Phosphatase 81 U/L (40-110); Anion Gap 13 mmol/L (10-20); BUN (Urea Nitrogen) 40 mg/dL (9.8-20.1); Bilirubin, Total 0.8 mg/dL (0.2-1.2); Calc. Creatinine Clearance 0 mL/min (70-130); Calcium 9.2 mg/dL (7.8-10.44); Carbon Dioxide 21 mmol/L (23-31); Chloride 104 mmol/L (98-107); Estimated GFR 28; Globulin 2.3 g/dL (2.4-3.5); Glucose 107 mg/dL (83-110); Lipase 7 U/L (8-78); Magnesium 1.9 mg/dL (1.6-2.6); Potassium 5.2 mmol/L (3.5-5.1); Protein, Total 6.2 g/dL (5.8-8.1); Sodium 133 mmol/L (136-145)
[2022-08-11] MEDS ORDERED: Morphine 2 MG/ML VIAL ONE ×2 (00:11→04:29)
[2022-08-11 00:26] LABS: Bacteria/HPF None Seen HPF (None Seen); Bilirubin Negative (Negative); Blood, Urine Negative (Negative); CAUTI Indications for Culture Dysuria,urgency,freq; Clarity Clear (Clear); Glucose, Urine (Dipstick) Normal (Negative); Ketone, Urine Negative (Negative); Leukocyte Negative Leu/uL (Negative); Nitrite Negative (Negative); Protein, Urine (Dipstick) Negative (Neg-Trace); RBC/HPF 0-3 HPF (0-3); Specific Gravity, Urine 1.017 (1.002-1.036); Squamous Epithelial 0-3 HPF (0-3); Urobilinogen Normal mg/dL (Less than 2); WBC/HPF 0-3 HPF (0-3)
[2022-08-11 00:28] LABS: Urine Culture Reflex No No
[2022-08-11] MEDS ORDERED: Acetaminophen 325 MG TAB PO PRN (03:29)
[2022-08-11] MEDS ORDERED: Ondansetron PF 4 MG/2 ML Vial IVP PRN (03:29)
[2022-08-11 04:37] LABS: INR-International Normal Ratio 1.5; PTT 48.3 sec (22.9-36.1)
[2022-08-11] MEDS ORDERED: Furosemide 20 MG/2 ML VIAL SLOW IVP SCH (06:00)
[2022-08-11 08:33] LABS: #Eosinphils 0.2 thou/uL (0.0-0.7); #Monocytes 0.6 thou/uL (0.11-0.59); #Neutrophils 5.1 thou/uL (1.40-6.50); %Basophils 0.6 % (0.0-1.0); %Eosinophils 2.3 % (0.0-10.0); %Lymphocytes 15.1 % (21.0-51.0); %Monocytes 8.5 % (0.0-10.0); %Neutrophils 72.9 % (42.0-75.0); Hemoglobin 9.1 g/dL (12.0-16.0); Mean Corpuscular HGB CONC 30.8 g/dL (32.0-36.0); Mean Corpuscular Hemoglobin 29.7 pg (27.0-31.0); Mean Corpuscular Volume 96.4 fl (78.0-98.0); Platelet Count 131 10x3/uL (130-400); RBC Distribution Width 14.6 % (11.5-14.5); Red Blood Cell (RBC) Count 3.06 mill/uL (4.20-5.40)
[2022-08-11] MEDS ORDERED: Promethazine HCl 6.25 MG/5 ML Syrup PO PRN (08:47)
[2022-08-11] MEDS ORDERED: LIDOCAINE TP PRN (08:47)
[2022-08-11 08:50] LABS: Anion Gap 12 mmol/L (10-20); BUN (Urea Nitrogen) 36 mg/dL (9.8-20.1); Calc. Creatinine Clearance 23 mL/min (70-130); Carbon Dioxide 22 mmol/L (23-31); Chloride 104 mmol/L (98-107); Estimated GFR 27; Glucose 99 mg/dL (83-110); Potassium 4.5 mmol/L (3.5-5.1); Sodium 133 mmol/L (136-145)
[2022-08-11] MEDS ORDERED: Non-Formulary Item 1 EACH (Esomeprazole Magnesium [Nexium] 40 MG Cap) PO SCH (09:00)
[2022-08-11] MEDS ORDERED: Non-Formulary Item 1 EACH (Cholecalciferol (Vitamin D3) [Vitamin D3] 1000 UNIT Capsule) PO SCH (09:00)
[2022-08-11] MEDS ORDERED: Non-Formulary Item 1 EACH (Mirabegron [Myrbetriq] 50 MG Tab.Er.24h) PO SCH (09:00)
[2022-08-11] MEDS ORDERED: Lidocaine 4% Patch TD PRN (09:02)
[2022-08-11] MEDS: Escitalopram Oxalate 20 mg Tablet PO SCH (09:35)
[2022-08-11] MEDS: Cholecalciferol 1,000 UNITS (25 MCG) TAB PO SCH (09:35)
[2022-08-11] MEDS: predniSONE 5 MG TAB PO SCH (09:35)
[2022-08-11] MEDS: Levothyroxine Sodium 112 MCG TAB PO SCH (09:36)
[2022-08-11] MEDS: Acetaminophen/Codeine 30-300mg Tablet PO PRN ×2 (15:57→20:21)
[2022-08-11] MEDS ORDERED: Torsemide 20 MG TAB PO SCH (16:00)
[2022-08-11] MEDS ORDERED: Lorazepam 1 MG TAB PO SCH (21:00)
[2022-08-11] MEDS ORDERED: Transdermal Patch Removal TOP SCH (21:00)
[2022-08-12] MEDS: Acetaminophen/Codeine 30-300mg Tablet PO PRN (01:10)
[2022-08-12 04:49] LABS: #Eosinphils 0.1 thou/uL (0.0-0.7); #Monocytes 0.7 thou/uL (0.11-0.59); #Neutrophils 4.5 thou/uL (1.40-6.50); %Basophils 0.6 % (0.0-1.0); %Eosinophils 2.1 % (0.0-10.0); %Lymphocytes 13.3 % (21.0-51.0); %Monocytes 10.9 % (0.0-10.0); %Neutrophils 72.8 % (42.0-75.0); Hemoglobin 8.2 g/dL (12.0-16.0); Mean Corpuscular HGB CONC 31.5 g/dL (32.0-36.0); Mean Corpuscular Hemoglobin 29.9 pg (27.0-31.0); Mean Corpuscular Volume 94.9 fl (78.0-98.0); Platelet Count 110 10x3/uL (130-400); RBC Distribution Width 14.5 % (11.5-14.5); Red Blood Cell (RBC) Count 2.74 mill/uL (4.20-5.40); White Blood Cell (WBC) Count 6.2 10x3/uL (4.8-10.8)
[2022-08-12 05:15] LABS: Anion Gap 12 mmol/L (10-20); BUN (Urea Nitrogen) 38 mg/dL (9.8-20.1); Calc. Creatinine Clearance 20 mL/min (70-130); Calcium 8.9 mg/dL (7.8-10.44); Carbon Dioxide 23 mmol/L (23-31); Chloride 103 mmol/L (98-107); Estimated GFR 23; Glucose 85 mg/dL (83-110); Potassium 4.9 mmol/L (3.5-5.1); Sodium 133 mmol/L (136-145)
[2022-08-12 06:11] VITALS: BMI 17.8
[2022-08-12 07:30] VITALS: TEMP 97.8
[2022-08-12] MEDS: Escitalopram Oxalate 20 mg Tablet PO SCH (08:34)
[2022-08-12] MEDS: predniSONE 5 MG TAB PO SCH (08:34)
[2022-08-12] MEDS: Cholecalciferol 1,000 UNITS (25 MCG) TAB PO SCH (08:34)
[2022-08-12] MEDS: Levothyroxine Sodium 112 MCG TAB PO SCH (08:34)
[2022-08-12 11:34] VITALS: BP 124/59
== END 2022-08-12 15:30 | disposition home or self-care (01) | DRG 291 ==
LOC: ERS 22:17 → 2NO 08-11 04:33 → OBSVTOIN 08-11 13:27
PROVIDERS: ADMIT Internal Medicine; ATTEND Internal Medicine
DX: I13.0 Hypertensive heart and chronic kidney disease with heart failure and stage 1 through stage 4 chronic kidney disease, or unspecified chronic kidney disease (principal); I50.33 Acute on chronic diastolic (congestive) heart failure; N18.4 Chronic kidney disease, stage 4 (severe); E87.1 Hypo-osmolality and hyponatremia; M79.81 Nontraumatic hematoma of soft tissue; E03.9 Hypothyroidism, unspecified; Z96.642 Presence of left artificial hip joint; D69.6 Thrombocytopenia, unspecified; I48.0 Paroxysmal atrial fibrillation; D63.8 Anemia in other chronic diseases classified elsewhere; R32 Unspecified urinary incontinence; Z88.1 Allergy status to other antibiotic agents; Z88.8 Allergy status to other drugs, medicaments and biological substances; Z79.899 Other long term (current) drug therapy; Z79.01 Long term (current) use of anticoagulants; Z95.0 Presence of cardiac pacemaker; Z90.49 Acquired absence of other specified parts of digestive tract
CPT/HCPCS: 36415; 36416; 70450; 71045; 74176; 80048; 80053; 81001; 83605; 83690; 83735; 83880; 84443; 84484; 85025; 85610; 85730; 87040; 87086; 93005; 96374; 96375; 96376; G0378; J1940; J2272; J2405; J7512

== ENCOUNTER 2022-11-27 04:29 | Inpatient (IN) | payer BC, MEDICARE ==
[2022-11-27] MEDS ORDERED: Lidocaine 1% w/Epinephrine 1:100K 20 ML VIAL ONE (04:37)
[2022-11-27] MEDS ORDERED: CEFAZOLIN 2 GM VIAL ONE (04:42)
[2022-11-27] MEDS ORDERED: Midazolam HCl 2 mg/2 ml Vial ONE (04:42)
[2022-11-27] MEDS ORDERED: Boostrix 0.5 ML (Tdap) VIAL (>/=7 yrs of age) ONE (04:42)
[2022-11-27 05:03] LABS: #Eosinphils 0.1 thou/uL (0.0-0.7); #Monocytes 0.6 thou/uL (0.11-0.59); #Neutrophils 3.9 thou/uL (1.40-6.50); %Basophils 0.5 % (0.0-1.0); %Eosinophils 1.6 % (0.0-10.0); %Lymphocytes 19.9 % (21.0-51.0); %Monocytes 9.7 % (0.0-10.0); Hematocrit 25.1 % (36.0-47.0); Hemoglobin 7.8 g/dL (12.0-16.0); Mean Corpuscular HGB CONC 31.1 g/dL (32.0-36.0); Mean Corpuscular Hemoglobin 30.5 pg (27.0-31.0); Mean Platelet Volume 10.4 fL (7.4-10.4); Platelet Count 134 10x3/uL (130-400); RBC Distribution Width 15.1 % (11.5-14.5); Red Blood Cell (RBC) Count 2.56 mill/uL (4.20-5.40); White Blood Cell (WBC) Count 5.8 10x3/uL (4.8-10.8)
[2022-11-27] MEDS ORDERED: Morphine 2 MG/ML VIAL ONE (05:11)
[2022-11-27 05:28] LABS: ALT (SGPT) 9 U/L (8-55); AST (SGOT) 15 U/L (5-34); Albumin 3.8 g/dL (3.4-4.8); Alkaline Phosphatase 68 U/L (40-110); Anion Gap 13 mmol/L (10-20); BUN (Urea Nitrogen) 54 mg/dL (9.8-20.1); Bilirubin, Total 0.3 mg/dL (0.2-1.2); Calc. Creatinine Clearance 0 mL/min (70-130); Calcium 8.3 mg/dL (7.8-10.44); Carbon Dioxide 22 mmol/L (23-31); Chloride 107 mmol/L (98-107); Estimated GFR 21; Globulin 1.9 g/dL (2.4-3.5); Glucose 94 mg/dL (83-110); Potassium 4.9 mmol/L (3.5-5.1); Protein, Total 5.7 g/dL (5.8-8.1); Sodium 137 mmol/L (136-145)
[2022-11-27 05:32] LABS: Troponin I 0.027 ng/mL (< 0.028)
[2022-11-27 05:43] LABS: INR-International Normal Ratio 1.4; PTT 42.1 sec (22.9-36.1); Prothrombin Time 17.9 sec (12.0-14.7)
[2022-11-27] MEDS ORDERED: Vancomycin 1 GM/200 ML (FROZEN) BAG ONE (06:04)
[2022-11-27] MEDS ORDERED: Ondansetron PF 4 MG/2 ML Vial IVP PRN (06:47)
[2022-11-27] MEDS ORDERED: hydrALAZINE 20 MG/ML VIAL SLOW IVP PRN (06:47)
[2022-11-27] MEDS ORDERED: Ipratropium/Albuterol 3 ML NEB NEB PRN (06:47)
[2022-11-27] MEDS ORDERED: Famotidine/PF 20 mg/2ml Vial SLOW IVP SCH ×4 (09:00→17:15)
[2022-11-27] MEDS: Ferrous Sulfate 325 MG TAB PO SCH ×2 (10:08→17:24)
[2022-11-27] MEDS: Ascorbic Acid 500 mg Chewable Tablet PO SCH ×2 (10:09→20:44)
[2022-11-27] MEDS ORDERED: Morphine 2 MG/ML VIAL SLOW IVP SCH (11:30)
[2022-11-27] MEDS: Acetaminophen 325 MG TAB PO SCH ×3 (11:36→23:06)
[2022-11-27 11:43] LABS: #Basophils 0.1 thou/uL (0.0-0.2); #Eosinphils 0.2 thou/uL (0.0-0.7); #Monocytes 0.8 thou/uL (0.11-0.59); #Neutrophils 5.3 thou/uL (1.40-6.50); %Basophils 0.7 % (0.0-1.0); %Eosinophils 2.1 % (0.0-10.0); %Lymphocytes 11.5 % (21.0-51.0); %Monocytes 10.8 % (0.0-10.0); %Neutrophils 74.5 % (42.0-75.0); Hematocrit 21.6 % (36.0-47.0); Hemoglobin 6.7 g/dL (12.0-16.0); Mean Corpuscular Hemoglobin 30.3 pg (27.0-31.0); Mean Corpuscular Volume 97.7 fl (78.0-98.0); Mean Platelet Volume 10.2 fL (7.4-10.4); Platelet Count 126 10x3/uL (130-400); RBC Distribution Width 15.2 % (11.5-14.5); Red Blood Cell (RBC) Count 2.21 mill/uL (4.20-5.40); White Blood Cell (WBC) Count 7.1 10x3/uL (4.8-10.8)
[2022-11-27 11:58] LABS: INR-International Normal Ratio 1.5; Prothrombin Time 18.8 sec (12.0-14.7)
[2022-11-27 11:59] LABS: PTT 40.6 sec (22.9-36.1)
[2022-11-27] MEDS ORDERED: Acetaminophen 500 MG TAB PO SCH (12:00)
[2022-11-27 12:11] VITALS: BMI 19.3
[2022-11-27 12:14] LABS: Chloride 108 mmol/L (98-107); Potassium 4.4 mmol/L (3.5-5.1); Sodium 138 mmol/L (136-145)
[2022-11-27 12:15] LABS: Calcium 8.2 mg/dL (7.8-10.44); Glucose 113 mg/dL (83-110)
[2022-11-27 12:17] LABS: Anion Gap 13 mmol/L (10-20); Carbon Dioxide 21 mmol/L (23-31)
[2022-11-27 12:18] LABS: Calc. Creatinine Clearance 16 mL/min (70-130); Estimated GFR 22
[2022-11-27 12:19] LABS: BUN (Urea Nitrogen) 53 mg/dL (9.8-20.1)
[2022-11-27 12:25] LABS: Troponin I 0.028 ng/mL (< 0.028)
[2022-11-27] MEDS ORDERED: FLU VACC QS2023(65UP)/MF59C/PF 60 MCG/0.5 ML SYRINGE IM ONE (14:45)
[2022-11-27] MEDS: Lorazepam 1 MG TAB PO SCH (20:43)
[2022-11-27] MEDS: Acetaminophen/Codeine 30-300mg Tablet PO PRN (20:47)
[2022-11-27 22:17] LABS: Bacteria/HPF Rare-Few HPF (None Seen); Bilirubin Negative (Negative); Blood, Urine Negative (Negative); CAUTI Indications for Culture Alt mental st,lethar; Clarity Clear (Clear); Glucose, Urine (Dipstick) Normal (Negative); Ketone, Urine Negative (Negative); Leukocyte Negative Leu/uL (Negative); Nitrite Negative (Negative); Protein, Urine (Dipstick) Negative (Neg-Trace); RBC/HPF 0-3 HPF (0-3); Specific Gravity, Urine 1.022 (1.002-1.036); Squamous Epithelial 0-3 HPF (0-3); Urobilinogen Normal mg/dL (Less than 2); WBC/HPF 0-3 HPF (0-3); pH, Urine 5.5 (5.0-9.0)
[2022-11-27 22:18] LABS: Urine Culture Reflex No No
[2022-11-28] MEDS: Morphine 2 MG/ML VIAL SLOW IVP PRN ×2 (02:52→09:01)
[2022-11-28 05:35] LABS: #Eosinphils 0.2 thou/uL (0.0-0.7); #Monocytes 0.6 thou/uL (0.11-0.59); #Neutrophils 4.3 thou/uL (1.40-6.50); %Basophils 0.7 % (0.0-1.0); %Eosinophils 2.6 % (0.0-10.0); %Lymphocytes 12.2 % (21.0-51.0); %Monocytes 10.2 % (0.0-10.0); %Neutrophils 73.8 % (42.0-75.0); Hematocrit 24.9 % (36.0-47.0); Hemoglobin 7.9 g/dL (12.0-16.0); Mean Corpuscular HGB CONC 31.7 g/dL (32.0-36.0); Mean Corpuscular Hemoglobin 30.6 pg (27.0-31.0); Mean Corpuscular Volume 96.5 fl (78.0-98.0); Mean Platelet Volume 10.5 fL (7.4-10.4); RBC Distribution Width 15.7 % (11.5-14.5); Red Blood Cell (RBC) Count 2.58 mill/uL (4.20-5.40); White Blood Cell (WBC) Count 5.8 10x3/uL (4.8-10.8)
[2022-11-28 05:55] LABS: Anion Gap 10 mmol/L (10-20); BUN (Urea Nitrogen) 46 mg/dL (9.8-20.1); Calc. Creatinine Clearance 17 mL/min (70-130); Calcium 8.1 mg/dL (7.8-10.44); Carbon Dioxide 23 mmol/L (23-31); Chloride 106 mmol/L (98-107); Estimated GFR 23; Glucose 79 mg/dL (83-110); Potassium 5.2 mmol/L (3.5-5.1); Sodium 134 mmol/L (136-145)
[2022-11-28] MEDS: Acetaminophen 325 MG TAB PO SCH ×3 (06:00→17:35)
[2022-11-28] MEDS: Levothyroxine Sodium 112 MCG TAB PO SCH (06:00)
[2022-11-28 06:39] LABS: Platelet Count 119 10x3/uL (130-400)
[2022-11-28] MEDS: Ascorbic Acid 500 mg Chewable Tablet PO SCH ×2 (08:15→20:16)
[2022-11-28] MEDS: predniSONE 5 MG TAB PO SCH ×2 (08:15→08:16)
[2022-11-28] MEDS: Escitalopram Oxalate 20 mg Tablet PO SCH (08:16)
[2022-11-28] MEDS: Ferrous Sulfate 325 MG TAB PO SCH ×2 (08:16→17:32)
[2022-11-28] MEDS: Torsemide 10 MG TAB PO SCH (08:16)
[2022-11-28] MEDS: Acetaminophen/Codeine 30-300mg Tablet PO PRN ×3 (08:33→23:39)
[2022-11-28] MEDS ORDERED: Morphine 2 MG/ML VIAL SLOW IVP PRN (11:19)
[2022-11-28] MEDS ORDERED: Cyclobenzaprine 10 MG TAB PO PRN (11:19)
[2022-11-28] MEDS: Gabapentin 100 MG CAP PO SCH (20:16)
[2022-11-28] MEDS: Lorazepam 1 MG TAB PO SCH (20:16)
[2022-11-29] MEDS: Acetaminophen 325 MG TAB PO SCH ×5 (00:24→23:46)
[2022-11-29] MEDS: Levothyroxine Sodium 112 MCG TAB PO SCH ×2 (05:39→06:13)
[2022-11-29 07:36] LABS: Anion Gap 9 mmol/L (10-20); BUN (Urea Nitrogen) 46 mg/dL (9.8-20.1); Calc. Creatinine Clearance 16 mL/min (70-130); Calcium 8.1 mg/dL (7.8-10.44); Carbon Dioxide 24 mmol/L (23-31); Chloride 104 mmol/L (98-107); Estimated GFR 21; Glucose 85 mg/dL (83-110); Potassium 4.8 mmol/L (3.5-5.1); Sodium 132 mmol/L (136-145)
[2022-11-29 08:09] LABS: Troponin I 0.033 ng/mL (< 0.028)
[2022-11-29] MEDS: Ferrous Sulfate 325 MG TAB PO SCH ×2 (08:14→16:39)
[2022-11-29] MEDS: Gabapentin 100 MG CAP PO SCH ×2 (08:14→20:20)
[2022-11-29] MEDS: Ascorbic Acid 500 mg Chewable Tablet PO SCH ×2 (08:14→20:21)
[2022-11-29] MEDS: Torsemide 10 MG TAB PO SCH (08:15)
[2022-11-29] MEDS: Escitalopram Oxalate 20 mg Tablet PO SCH (08:15)
[2022-11-29] MEDS: Acetaminophen/Codeine 30-300mg Tablet PO PRN (14:54)
[2022-11-29 16:58] LABS: Hematocrit 25.5 % (36.0-47.0)
[2022-11-29] MEDS: Lorazepam 1 MG TAB PO SCH (20:20)
[2022-11-29] MEDS: Heparin 5,000 UNITS/ML VIAL SC SCH (20:24)
[2022-11-30] MEDS: Acetaminophen/Codeine 30-300mg Tablet PO PRN (03:27)
[2022-11-30] MEDS: Acetaminophen 325 MG TAB PO SCH ×3 (05:34→17:07)
[2022-11-30] MEDS: Levothyroxine Sodium 112 MCG TAB PO SCH (05:35)
[2022-11-30 08:14] LABS: Hematocrit 24.8 % (36.0-47.0); Hemoglobin 7.5 g/dL (12.0-16.0)
[2022-11-30] MEDS: Escitalopram Oxalate 20 mg Tablet PO SCH (08:37)
[2022-11-30] MEDS: Gabapentin 100 MG CAP PO SCH ×2 (08:38→21:27)
[2022-11-30] MEDS: Ascorbic Acid 500 mg Chewable Tablet PO SCH ×2 (08:38→21:28)
[2022-11-30] MEDS: Torsemide 10 MG TAB PO SCH (08:39)
[2022-11-30] MEDS: Heparin 5,000 UNITS/ML VIAL SC SCH (08:39)
[2022-11-30] MEDS: predniSONE 5 MG TAB PO SCH (08:39)
[2022-11-30] MEDS: Ferrous Sulfate 325 MG TAB PO SCH ×2 (08:39→17:07)
[2022-11-30] MEDS ORDERED: FLU VACC QS2023(65UP)/MF59C/PF 60 MCG/0.5 ML SYRINGE IM ONE (09:00)
[2022-11-30 12:48] LABS: #Eosinphils 0.1 thou/uL (0.0-0.7); #Monocytes 0.6 thou/uL (0.11-0.59); #Neutrophils 6.5 thou/uL (1.40-6.50); %Basophils 0.3 % (0.0-1.0); %Eosinophils 0.9 % (0.0-10.0); %Lymphocytes 4.7 % (21.0-51.0); %Monocytes 8.2 % (0.0-10.0); %Neutrophils 85.4 % (42.0-75.0); Hematocrit 25.1 % (36.0-47.0); Hemoglobin 7.8 g/dL (12.0-16.0); Mean Corpuscular HGB CONC 31.1 g/dL (32.0-36.0); Mean Corpuscular Hemoglobin 30.4 pg (27.0-31.0); Mean Corpuscular Volume 97.7 fl (78.0-98.0); Mean Platelet Volume 10.5 fL (7.4-10.4); Platelet Count 131 10x3/uL (130-400); RBC Distribution Width 15.7 % (11.5-14.5); Red Blood Cell (RBC) Count 2.57 mill/uL (4.20-5.40); White Blood Cell (WBC) Count 7.6 10x3/uL (4.8-10.8)
[2022-11-30] MEDS: Aspirin 81 mg Enteric Coated Tablet PO SCH (21:27)
[2022-11-30] MEDS: Lorazepam 1 MG TAB PO SCH (21:28)
[2022-12-01] MEDS: Acetaminophen 325 MG TAB PO SCH ×4 (00:11→14:47)
[2022-12-01] MEDS: Levothyroxine Sodium 112 MCG TAB PO SCH (05:52)
[2022-12-01 06:51] LABS: #Eosinphils 0.2 thou/uL (0.0-0.7); #Monocytes 0.7 thou/uL (0.11-0.59); %Basophils 0.5 % (0.0-1.0); %Eosinophils 2.7 % (0.0-10.0); %Lymphocytes 10.9 % (21.0-51.0); %Monocytes 9.1 % (0.0-10.0); %Neutrophils 76.2 % (42.0-75.0); Hematocrit 26.4 % (36.0-47.0); Hemoglobin 8.1 g/dL (12.0-16.0); Mean Corpuscular HGB CONC 30.7 g/dL (32.0-36.0); Mean Corpuscular Hemoglobin 29.9 pg (27.0-31.0); Mean Corpuscular Volume 97.4 fl (78.0-98.0); Mean Platelet Volume 10.5 fL (7.4-10.4); Platelet Count 153 10x3/uL (130-400); RBC Distribution Width 15.6 % (11.5-14.5); Red Blood Cell (RBC) Count 2.71 mill/uL (4.20-5.40); White Blood Cell (WBC) Count 7.9 10x3/uL (4.8-10.8)
[2022-12-01] MEDS: Gabapentin 100 MG CAP PO SCH ×2 (09:32→21:09)
[2022-12-01] MEDS: Aspirin 81 mg Enteric Coated Tablet PO SCH ×2 (09:32→21:09)
[2022-12-01] MEDS: Ascorbic Acid 500 mg Chewable Tablet PO SCH ×2 (09:32→21:09)
[2022-12-01] MEDS: Escitalopram Oxalate 20 mg Tablet PO SCH (09:32)
[2022-12-01] MEDS: Torsemide 10 MG TAB PO SCH (09:32)
[2022-12-01] MEDS: Ferrous Sulfate 325 MG TAB PO SCH ×2 (09:32→16:46)
[2022-12-01] MEDS: Acetaminophen/Codeine 30-300mg Tablet PO PRN (09:43)
[2022-12-01] MEDS: Lorazepam 1 MG TAB PO SCH (21:09)
[2022-12-02] MEDS: Acetaminophen 325 MG TAB PO SCH ×2 (00:27→05:40)
[2022-12-02] MEDS: Levothyroxine Sodium 112 MCG TAB PO SCH (05:40)
[2022-12-02] MEDS: Gabapentin 100 MG CAP PO SCH (09:18)
[2022-12-02] MEDS: Ascorbic Acid 500 mg Chewable Tablet PO SCH (09:18)
[2022-12-02] MEDS: Ferrous Sulfate 325 MG TAB PO SCH (09:18)
[2022-12-02] MEDS: Escitalopram Oxalate 20 mg Tablet PO SCH (09:18)
[2022-12-02] MEDS: Aspirin 81 mg Enteric Coated Tablet PO SCH (09:19)
[2022-12-02] MEDS: Torsemide 10 MG TAB PO SCH (09:19)
[2022-12-02 11:38] VITALS: BP 125/68; TEMP 97.8
== END 2022-12-02 16:58 | disposition home health service (06) | DRG 605 ==
LOC: ERS 04:29 → SURG A 06:47
PROVIDERS: ADMIT Surgery; ATTEND Surgery
PROC: 30233N1 Transfusion of Nonautologous Red Blood Cells into Peripheral Vein, Percutaneous Approach (ICD-10-PCS; principal; 2022-11-27)
DX: S41.111A Laceration without foreign body of right upper arm, initial encounter (principal); I13.0 Hypertensive heart and chronic kidney disease with heart failure and stage 1 through stage 4 chronic kidney disease, or unspecified chronic kidney disease; I50.32 Chronic diastolic (congestive) heart failure; D62 Acute posthemorrhagic anemia; S81.812A Laceration without foreign body, left lower leg, initial encounter; S81.802A Unspecified open wound, left lower leg, initial encounter; S61.216A Laceration without foreign body of right little finger without damage to nail, initial encounter; W18.30XA Fall on same level, unspecified, initial encounter; N18.9 Chronic kidney disease, unspecified; D63.1 Anemia in chronic kidney disease; E03.9 Hypothyroidism, unspecified; Z96.642 Presence of left artificial hip joint; Y92.041 Bathroom in boarding-house as the place of occurrence of the external cause; Z88.1 Allergy status to other antibiotic agents; Z79.899 Other long term (current) drug therapy; Z86.73 Personal history of transient ischemic attack (TIA), and cerebral infarction without residual deficits; Z90.49 Acquired absence of other specified parts of digestive tract; Z95.0 Presence of cardiac pacemaker; Z98.890 Other specified postprocedural states
CPT/HCPCS: 36415; 36430; 70450; 71045; 80048; 80053; 81001; 83880; 84484; 85014; 85018; 85025; 85610; 85730; 86850; 86900; 86901; 90715; 97139; G0390; J1644; J2250; J2272; J3370-JW; J7512; P9016; S0028

== ENCOUNTER 2023-01-24 11:48 | Emergency (ER) | payer MEDICARE ==
[2023-01-24] MEDS ORDERED: Acetaminophen 325 MG TAB ONE (13:10)
[2023-01-24] MEDS ORDERED: Lidocaine 1% w/Epinephrine 1:100K 20 ML VIAL ONE (13:10)
[2023-01-24 13:34] LABS: #Basophils 0.1 thou/uL (0.0-0.2); #Eosinphils 0.1 thou/uL (0.0-0.7); #Monocytes 0.5 thou/uL (0.11-0.59); #Neutrophils 4.4 thou/uL (1.40-6.50); %Eosinophils 1.5 % (0.0-10.0); %Lymphocytes 14.3 % (21.0-51.0); %Monocytes 8.8 % (0.0-10.0); %Neutrophils 73.7 % (42.0-75.0); Hematocrit 20.3 % (36.0-47.0); Mean Corpuscular HGB CONC 29.6 g/dL (32.0-36.0); Mean Corpuscular Hemoglobin 29.1 pg (27.0-31.0); Mean Corpuscular Volume 98.5 fl (78.0-98.0); Mean Platelet Volume 9.3 fL (7.4-10.4); Platelet Count 150 10x3/uL (130-400); RBC Distribution Width 15.9 % (11.5-14.5); Red Blood Cell (RBC) Count 2.06 mill/uL (4.20-5.40)
[2023-01-24 13:48] LABS: INR-International Normal Ratio 1.4; Prothrombin Time 17.8 sec (12.0-14.7)
[2023-01-24 13:49] LABS: PTT 42.8 sec (22.9-36.1)
[2023-01-24 15:36] LABS: ALT (SGPT) 8 U/L (8-55); AST (SGOT) 11 U/L (5-34); Alkaline Phosphatase 70 U/L (40-110); Anion Gap 10 mmol/L (10-20); BUN (Urea Nitrogen) 62 mg/dL (9.8-20.1); Bilirubin, Total 0.5 mg/dL (0.2-1.2); Calc. Creatinine Clearance 0 mL/min (70-130); Calcium 8.2 mg/dL (7.8-10.44); Carbon Dioxide 21 mmol/L (23-31); Chloride 110 mmol/L (98-107); Estimated GFR 20; Globulin 2.3 g/dL (2.4-3.5); Glucose 85 mg/dL (83-110); Potassium 4.9 mmol/L (3.5-5.1); Protein, Total 5.3 g/dL (5.8-8.1); Sodium 136 mmol/L (136-145)
[2023-01-24 20:48] LABS: Hematocrit 27.7 % (36.0-47.0)
== END 2023-01-24 21:30 | disposition home or self-care (01) ==
LOC: ERS 11:48
DX: S81.811A Laceration without foreign body, right lower leg, initial encounter (principal); D64.9 Anemia, unspecified; E03.9 Hypothyroidism, unspecified; I48.91 Unspecified atrial fibrillation; Z79.899 Other long term (current) drug therapy; Z79.01 Long term (current) use of anticoagulants; W27.2XXA Contact with scissors, initial encounter
CPT/HCPCS: 36430; 80053; 85014; 85018; 85025; 85610; 85730; 86850; 86900; 86901; 86920; P9016; 36415; 64450

== ENCOUNTER 2023-02-21 12:19 | Inpatient (IN) | payer MEDICARE, BC ==
[2023-02-21 13:11] LABS: #Eosinphils 0.1 thou/uL (0.0-0.7); #Monocytes 0.4 thou/uL (0.11-0.59); #Neutrophils 5.6 thou/uL (1.40-6.50); %Basophils 0.3 % (0.0-1.0); %Eosinophils 0.7 % (0.0-10.0); %Lymphocytes 7.9 % (21.0-51.0); %Monocytes 6.3 % (0.0-10.0); %Neutrophils 84.4 % (42.0-75.0); Hematocrit 24.9 % (36.0-47.0); Hemoglobin 7.6 g/dL (12.0-16.0); Mean Corpuscular HGB CONC 30.5 g/dL (32.0-36.0); Mean Corpuscular Hemoglobin 28.7 pg (27.0-31.0); Mean Platelet Volume 9.3 fL (7.4-10.4); Platelet Count 139 10x3/uL (130-400); RBC Distribution Width 16.5 % (11.5-14.5); Red Blood Cell (RBC) Count 2.65 mill/uL (4.20-5.40); White Blood Cell (WBC) Count 6.7 10x3/uL (4.8-10.8)
[2023-02-21 13:37] LABS: Troponin I 0.017 ng/mL (< 0.028)
[2023-02-21 13:38] LABS: ALT (SGPT) Less than 7 U/L (8-55); AST (SGOT) 11 U/L (5-34); Albumin 3.2 g/dL (3.4-4.8); Alkaline Phosphatase 76 U/L (40-110); Anion Gap 13 mmol/L (10-20); BUN (Urea Nitrogen) 61 mg/dL (9.8-20.1); Bilirubin, Total 0.5 mg/dL (0.2-1.2); Calc. Creatinine Clearance 0 mL/min (70-130); Calcium 8.1 mg/dL (7.8-10.44); Carbon Dioxide 21 mmol/L (23-31); Chloride 104 mmol/L (98-107); Estimated GFR 16; Globulin 2.5 g/dL (2.4-3.5); Glucose 81 mg/dL (83-110); Lipase 16 U/L (8-78); Potassium 4.7 mmol/L (3.5-5.1); Protein, Total 5.7 g/dL (5.8-8.1); Sodium 133 mmol/L (136-145)
[2023-02-21] MEDS ORDERED: Sodium Chloride 0.9% 100 ML ONE (15:23)
[2023-02-21] MEDS ORDERED: cefTRIAXone (ROCEPHIN) 1 GM VIAL ONE (15:23)
[2023-02-21 15:37] LABS: Bilirubin Negative (Negative); Blood, Urine Negative (Negative); CAUTI Indications for Culture Pelvic or flank pain; Clarity Clear (Clear); Glucose, Urine (Dipstick) Normal (Negative); Ketone, Urine Negative (Negative); Leukocyte 500 Leu/uL (Negative); Nitrite Negative (Negative); Protein, Urine (Dipstick) 10 mg/dL (Neg-Trace); RBC/HPF 0-3 HPF (0-3); Specific Gravity, Urine 1.015 (1.002-1.036); Squamous Epithelial 0-3 HPF (0-3); Urobilinogen Normal mg/dL (Less than 2); pH, Urine 5.5 (5.0-9.0)
[2023-02-21 15:38] LABS: Bacteria/HPF 1+ HPF (None Seen)
[2023-02-21 15:39] LABS: Urine Culture Reflex Yes Yes
[2023-02-21] MEDS ORDERED: metroNIDAZOLE 500 MG (100 mL) BAG ONE (16:27)
[2023-02-21] MEDS ORDERED: hydrALAZINE 20 MG/ML VIAL SLOW IVP PRN (16:29)
[2023-02-21] MEDS ORDERED: Piperacillin/Tazobactam 3.375 GM in Sodium Chloride 0.9% 100 ML IVPB SCH ×2 (16:30→18:00)
[2023-02-21 17:38] VITALS: BMI 18.4
[2023-02-21] MEDS: Acetaminophen 325 MG TAB PO PRN (19:53)
[2023-02-21] MEDS: Apixaban 2.5 MG TAB PO SCH (19:53)
[2023-02-21] MEDS: Lorazepam 0.5 MG TAB PO PRN (19:54)
[2023-02-22] MEDS: Piperacillin/Tazobactam 3.375 GM in Sodium Chloride 0.9% 100 ML IVPB SCH ×2 (00:06→11:53)
[2023-02-22] MEDS: Acetaminophen 325 MG TAB PO PRN ×2 (02:40→22:35)
[2023-02-22] MEDS: Apixaban 2.5 MG TAB PO SCH ×2 (08:50→22:26)
[2023-02-22] MEDS ORDERED: Escitalopram Oxalate 20 mg Tablet PO SCH (09:00)
[2023-02-22] MEDS: Sodium Chloride 0.9% 1,000 ML IV SCH (09:32)
[2023-02-22 13:36] LABS: #Eosinphils 0.1 thou/uL (0.0-0.7); #Monocytes 0.6 thou/uL (0.11-0.59); #Neutrophils 6.3 thou/uL (1.40-6.50); %Basophils 0.4 % (0.0-1.0); %Eosinophils 0.6 % (0.0-10.0); %Lymphocytes 9.5 % (21.0-51.0); %Monocytes 8.2 % (0.0-10.0); Hematocrit 25.8 % (36.0-47.0); Hemoglobin 7.6 g/dL (12.0-16.0); Mean Corpuscular HGB CONC 29.5 g/dL (32.0-36.0); Mean Corpuscular Hemoglobin 28.5 pg (27.0-31.0); Mean Corpuscular Volume 96.6 fl (78.0-98.0); Mean Platelet Volume 10.2 fL (7.4-10.4); Platelet Count 124 10x3/uL (130-400); Red Blood Cell (RBC) Count 2.67 mill/uL (4.20-5.40); White Blood Cell (WBC) Count 7.7 10x3/uL (4.8-10.8)
[2023-02-22 13:56] LABS: Anion Gap 16 mmol/L (10-20); BUN (Urea Nitrogen) 55 mg/dL (9.8-20.1); Calc. Creatinine Clearance 12 mL/min (70-130); Calcium 7.5 mg/dL (7.8-10.44); Carbon Dioxide 14 mmol/L (23-31); Chloride 108 mmol/L (98-107); Estimated GFR 17; Glucose 65 mg/dL (83-110); Potassium 5.1 mmol/L (3.5-5.1); Sodium 133 mmol/L (136-145)
[2023-02-22] MEDS: Ferrous Sulfate 325 MG TAB PO SCH (16:22)
[2023-02-22] MEDS: Ascorbic Acid 500 mg Chewable Tablet PO SCH (22:26)
[2023-02-22] MEDS: Aspirin 81 mg Enteric Coated Tablet PO SCH (22:26)
[2023-02-22] MEDS: Lorazepam 0.5 MG TAB PO PRN (22:29)
[2023-02-23] MEDS: Piperacillin/Tazobactam 3.375 GM in Sodium Chloride 0.9% 100 ML IVPB SCH ×2 (00:05→11:37)
[2023-02-23] MEDS: Sodium Chloride 0.9% 1,000 ML IV SCH ×2 (02:51→06:31)
[2023-02-23 06:20] LABS: %Basophils 0.4 % (0.0-1.0); %Eosinophils 1.3 % (0.0-10.0); %Lymphocytes 12.5 % (21.0-51.0); %Monocytes 8.7 % (0.0-10.0); %Neutrophils 76.5 % (42.0-75.0); Hematocrit 23.2 % (36.0-47.0); Hemoglobin 6.9 g/dL (12.0-16.0); Mean Corpuscular HGB CONC 29.7 g/dL (32.0-36.0); Mean Corpuscular Hemoglobin 28.3 pg (27.0-31.0); Mean Corpuscular Volume 95.1 fl (78.0-98.0); Mean Platelet Volume 9.9 fL (7.4-10.4); Platelet Count 128 10x3/uL (130-400); RBC Distribution Width 17.1 % (11.5-14.5); Red Blood Cell (RBC) Count 2.44 mill/uL (4.20-5.40); White Blood Cell (WBC) Count 5.3 10x3/uL (4.8-10.8)
[2023-02-23 06:21] LABS: #Eosinphils 0.1 thou/uL (0.0-0.7); #Monocytes 0.5 thou/uL (0.11-0.59)
[2023-02-23] MEDS: Levothyroxine Sodium 112 MCG TAB PO SCH (06:22)
[2023-02-23 06:50] LABS: Anion Gap 14 mmol/L (10-20); BUN (Urea Nitrogen) 47 mg/dL (9.8-20.1); Calc. Creatinine Clearance 14 mL/min (70-130); Calcium 7.6 mg/dL (7.8-10.44); Carbon Dioxide 17 mmol/L (23-31); Chloride 108 mmol/L (98-107); Estimated GFR 18; Glucose 75 mg/dL (83-110); Potassium 4.5 mmol/L (3.5-5.1); Sodium 134 mmol/L (136-145)
[2023-02-23] MEDS: Ferrous Sulfate 325 MG TAB PO SCH ×2 (08:54→16:23)
[2023-02-23] MEDS: Cholecalciferol 1,000 UNITS (25 MCG) TAB PO SCH (08:55)
[2023-02-23] MEDS: Ascorbic Acid 500 mg Chewable Tablet PO SCH ×2 (08:55→19:40)
[2023-02-23] MEDS: Aspirin 81 mg Enteric Coated Tablet PO SCH (08:55)
[2023-02-23] MEDS: Mirabegron ER 25 MG ER.TAB PO SCH (08:55)
[2023-02-23] MEDS: Apixaban 2.5 MG TAB PO SCH ×2 (08:55→19:40)
[2023-02-23] MEDS: Escitalopram Oxalate 20 mg Tablet PO SCH (08:55)
[2023-02-23] MEDS: Acetaminophen 325 MG TAB PO PRN ×2 (14:33→19:40)
[2023-02-24] MEDS: Acetaminophen/Codeine 30-300mg Tablet PO PRN ×2 (00:56→20:09)
[2023-02-24] MEDS: Piperacillin/Tazobactam 3.375 GM in Sodium Chloride 0.9% 100 ML IVPB SCH ×2 (00:57→11:09)
[2023-02-24] MEDS: Levothyroxine Sodium 112 MCG TAB PO SCH (05:37)
[2023-02-24] MEDS: Cholecalciferol 1,000 UNITS (25 MCG) TAB PO SCH (08:18)
[2023-02-24] MEDS: Mirabegron ER 25 MG ER.TAB PO SCH (08:18)
[2023-02-24] MEDS: Ascorbic Acid 500 mg Chewable Tablet PO SCH ×3 (08:18→20:09)
[2023-02-24] MEDS: Escitalopram Oxalate 20 mg Tablet PO SCH (08:18)
[2023-02-24] MEDS: Ferrous Sulfate 325 MG TAB PO SCH ×2 (08:19→16:43)
[2023-02-24] MEDS: Apixaban 2.5 MG TAB PO SCH ×2 (08:19→20:06)
[2023-02-24] MEDS ORDERED: Loperamide HCl 2 MG CAP PO PRN (15:23)
[2023-02-24] MEDS ORDERED: FLU VACC QS2023(65UP)/MF59C/PF 60 MCG/0.5 ML SYRINGE IM ONE (18:15)
[2023-02-24] MEDS: Lorazepam 0.5 MG TAB PO PRN (21:20)
[2023-02-25] MEDS: Levothyroxine Sodium 112 MCG TAB PO SCH (05:40)
[2023-02-25] MEDS: Mirabegron ER 25 MG ER.TAB PO SCH (08:03)
[2023-02-25] MEDS: Escitalopram Oxalate 20 mg Tablet PO SCH (08:03)
[2023-02-25] MEDS: Ascorbic Acid 500 mg Chewable Tablet PO SCH (08:03)
[2023-02-25] MEDS: Apixaban 2.5 MG TAB PO SCH (08:03)
[2023-02-25] MEDS: Ferrous Sulfate 325 MG TAB PO SCH (08:03)
[2023-02-25] MEDS: Cholecalciferol 1,000 UNITS (25 MCG) TAB PO SCH (08:03)
[2023-02-25 08:10] VITALS: BP 133/65; TEMP 98
== END 2023-02-25 11:06 | disposition home or self-care (01) | DRG 391 ==
LOC: ERS 12:19 → T4-A 15:34
PROVIDERS: ADMIT Internal Medicine; ATTEND Hospitalist
PROC: 30233N1 Transfusion of Nonautologous Red Blood Cells into Peripheral Vein, Percutaneous Approach (ICD-10-PCS; principal; 2023-02-23)
DX: K52.9 Noninfective gastroenteritis and colitis, unspecified (principal); J18.9 Pneumonia, unspecified organism; E44.0 Moderate protein-calorie malnutrition; Z68.1 Body mass index [BMI] 19.9 or less, adult; I50.32 Chronic diastolic (congestive) heart failure; N18.4 Chronic kidney disease, stage 4 (severe); I13.0 Hypertensive heart and chronic kidney disease with heart failure and stage 1 through stage 4 chronic kidney disease, or unspecified chronic kidney disease; N30.00 Acute cystitis without hematuria; I48.0 Paroxysmal atrial fibrillation; D63.1 Anemia in chronic kidney disease; E03.9 Hypothyroidism, unspecified; Z86.73 Personal history of transient ischemic attack (TIA), and cerebral infarction without residual deficits; Z90.49 Acquired absence of other specified parts of digestive tract; Z98.890 Other specified postprocedural states; Z95.0 Presence of cardiac pacemaker; Z88.1 Allergy status to other antibiotic agents; Z88.8 Allergy status to other drugs, medicaments and biological substances; Z79.899 Other long term (current) drug therapy; Z79.82 Long term (current) use of aspirin
CPT/HCPCS: 36415; 36430; 51701; 74176; 80048; 80053; 81001; 83690; 83880; 84484; 85025; 86850; 86900; 86901; 87077; 87086; 87186; 87324; 87449; 93005; 96361; 96365; 96375; 97139; J0696; J2543; J3490; J7050; P9016

== ENCOUNTER 2023-07-21 15:44 | Emergency (ER) | payer MEDICARE ==
[2023-07-21 17:39] LABS: #Basophils 0.03 10x3/uL (0.0-0.2); %Basophils 0.6 % (0.0-1.0); %Eosinophils 0.9 % (0.0-10.0); %Lymphocytes 13.3 % (21.0-51.0); %Monocytes 8.5 % (0.0-10.0); %Neutrophils 76.5 % (42.0-75.0); Hematocrit 24.4 % (36.0-47.0); Hemoglobin 7.1 g/dL (12.0-16.0); Mean Corpuscular HGB CONC 29.1 g/dL (32.0-36.0); Mean Corpuscular Hemoglobin 26.5 pg (27.0-31.0); Mean Platelet Volume 10.2 fL (7.4-10.4); Platelet Count 141 10x3/uL (130-400); RBC Distribution Width 15.9 % (11.5-14.5); Red Blood Cell (RBC) Count 2.68 mill/uL (4.20-5.40)
[2023-07-21 17:54] LABS: Lipase 17 U/L (8-78)
[2023-07-21 17:56] LABS: Acetaminophen Less than 10 mcg/mL (10.0-30.0); Alcohol Less than 10.0 mg/dL (Less than 10); Salicylate Less than 8.0 mg/dL (15.0-30.0)
[2023-07-21 17:57] LABS: ALT (SGPT) 12 U/L (8-55); AST (SGOT) 26 U/L (5-34); Albumin 3.1 g/dL (3.4-4.8); Alkaline Phosphatase 76 U/L (40-110); Anion Gap 12 mmol/L (10-20); BUN (Urea Nitrogen) 50 mg/dL (9.8-20.1); Bilirubin, Total 0.5 mg/dL (0.2-1.2); CK (CPK) 30 U/L (29-168); Calc. Creatinine Clearance 0 mL/min (70-130); Calcium 8.3 mg/dL (7.8-10.44); Carbon Dioxide 17 mmol/L (23-31); Chloride 110 mmol/L (98-107); Estimated GFR 24; Globulin 2.4 g/dL (2.4-3.5); Glucose 104 mg/dL (83-110); Potassium 4.9 mmol/L (3.5-5.1); Protein, Total 5.5 g/dL (5.8-8.1); Sodium 134 mmol/L (136-145)
[2023-07-21 18:00] LABS: Troponin I 0.029 ng/mL (< 0.028)
[2023-07-21 18:56] LABS: Influenza A by NAA Not Detected (NotDetected); Influenza B by NAA Not Detected (NotDetected); SARS-CoV-2 NAA Rapid Test Not Detected (NotDetected)
[2023-07-21 20:11] LABS: Bacteria/HPF None Seen HPF (None Seen); Bilirubin Negative (Negative); Blood, Urine Negative (Negative); CAUTI Indications for Culture Alt mental st,lethar; Clarity Clear (Clear); Glucose, Urine (Dipstick) Normal (Negative); Ketone, Urine Negative (Negative); Leukocyte Negative Leu/uL (Negative); Nitrite Negative (Negative); Protein, Urine (Dipstick) 10 mg/dL (Neg-Trace); RBC/HPF 0-3 HPF (0-3); Specific Gravity, Urine 1.015 (1.002-1.036); Squamous Epithelial 0-3 HPF (0-3); Urobilinogen Normal mg/dL (Less than 2); WBC/HPF 0-3 HPF (0-3)
[2023-07-21 20:17] LABS: Amphetamine Not Detected (NotDetected); Barbiturates Screen Not Detected (NotDetected); Benzodiazepine Screen Detected (NotDetected); Cocaine Metabolite Screen Not Detected (NotDetected); Methadone Not Detected (NotDetected); Methamphetamine Not Detected (NotDetected); Opiate Screen Not Detected (NotDetected); Oxycodone Screen Not Detected (NotDetected); Phencyclidine (PCP) Not Detected (NotDetected); THC/Cannabinoid Screen Not Detected (NotDetected); Tricyclic Screen Not Detected (NotDetected)
[2023-07-21 20:27] LABS: Urine Culture Reflex No No
== END 2023-07-22 04:35 | disposition home or self-care (01) ==
LOC: ERS 15:44
DX: R53.1 Weakness (principal); W18.30XA Fall on same level, unspecified, initial encounter; E03.8 Other specified hypothyroidism; I50.9 Heart failure, unspecified
CPT/HCPCS: 0240U; 70450; 71045; 73564; 80306; 80307; 81001; 82550; 83690; 84484; 87040; 93005; 99285; 36415; 80053; 84443; 85025